=== PATIENT | male | born 1985 | race Caucasian/White ===

== ENCOUNTER 2018-10-16 21:50 | Emergency (ER) | payer BC ==
[2018-10-16] MEDS ORDERED: SODIUM CHLORIDE 0.9% FLUSH 10 ML SOL IV PRN (22:08)
[2018-10-16 22:09] VITALS: RESP 18; TEMP 99.2
[2018-10-16 22:25] LABS: BASOPHILS % (AUTO) 1 % (0-3); EOSINOPHILS % (AUTO) 2 % (0-9); HEMATOCRIT 42 % (39-53); HEMOGLOBIN 14.7 gm/dl (13.5-17.7); LYMPHOCYTES % (AUTO) 24.1 % (10-50); MEAN CORPUSCULAR HEMOGLOBIN 30.9 pg (27.0-32.0); MEAN CORPUSCULAR VOLUME 88 fL (80-100); MONOCYTES % (AUTO) 8.2 % (0-12); NEUTROPHILS % (AUTO) 65.2 % (37-80)
[2018-10-16 22:41] LABS: BLOOD UREA NITROGEN 10 mg/dl (7-18); CALCIUM 8.6 mg/dl (8.5-10.1); CARBON DIOXIDE 31.3 mEq/L (21-32); CHLORIDE 107 mMol/L (98-107); CREATINE KINASE 121 U/L (39-308); CREATININE 0.96 mg/dl (0.80-1.30); GLUCOSE 114 mg/dl (74-106); POTASSIUM 3.5 mMol/L (3.5-5.1); SODIUM 144 mMol/L (136-145); TROP I < 0.017 ng/ml (0.000-0.056)
[2018-10-16] MEDS ORDERED: ALPRAZOLAM 0.25 MG TAB PO ONE (22:50)
[2018-10-16] MEDS ORDERED: ALPRAZOLAM 0.25 MG TAB ONE (22:58)
[2018-10-16 23:39] VITALS: BP 125/86; PULSE 74; O2SAT 98
== END 2018-10-16 23:30 | disposition home or self-care (01) ==
LOC: ED 21:50
DX: F41.9 Anxiety disorder, unspecified (principal)
CPT/HCPCS: 36415; 71045; 80048; 82550; 84484; 85025; 93005; 99283; 99284; A9270-GY